=== PATIENT | female | born 1980 | race Hispanic/Latino ===

== ENCOUNTER 2018-09-16 19:50 | Emergency (ER) | payer OTHER ==
[~2018-09-16 19:50] MED LIST: ACET1TAB12 PO
[2018-09-16 20:28] LABS: BASOPHILS % (AUTO) 2.2 % (0.0-5.0); EOSINOPHILS % (AUTO) 1.9 % (0.0-8.0); HEMATOCRIT 41.2 % (36-48); LYMPHOCYTES % (AUTO) 31.4 % (21.0-51.0); MEAN CORPUSCULAR HEMOGLOBIN 28.1 pg (27.0-33.0); MEAN CORPUSCULAR HGB CONC 33.4 g/dL (32.0-36.0); MEAN CORPUSCULAR VOLUME 84.2 fL (79-99); MONOCYTES % (AUTO) 6.7 % (3.0-13.0); NEUTROPHILS % (AUTO) 57.8 % (40.0-77.0); PLATELET COUNT (AUTO) 299 K/uL (130-400); RED BLOOD CELL COUNT(AUTO) 4.89 MIL/uL (4.00-5.50); RED CELL DISTRIBUTION WIDTH 12.8 % (11.0-15.5); WHITE BLOOD COUNT (AUTO) 7.9 K/uL (4.8-10.8)
[2018-09-16 20:40] LABS: CREATININE 0.7 mg/dL (0.5-1.5)
[2018-09-16 20:45] LABS: ALBUMIN 3.2 g/dL (3.5-5.0); BILIRUBIN,TOTAL 0.4 mg/dL (0.2-1.0); TOTAL PROTEIN, SERUM 7.4 g/dL (6.0-8.3)
[2018-09-16 20:46] LABS: B-TYPE NATRIURETIC PEPTIDE 9 pg/mL (0-100)
[2018-09-16 21:03] LABS: APPEARANCE,URINE Clear (CLEAR); BILIRUBIN,URINE Negative (NEGATIVE); COLOR,URINE Yellow (YELLOW); GLUCOSE, URINE (UA) Negative (NEGATIVE); KETONES,URINE Negative (NEGATIVE); LEUKOCYTE ESTERASE ,URINE Negative (NEGATIVE); NITRATE,URINE Negative (NEGATIVE); OCCULT BLOOD,URINE Negative (NEGATIVE); PROTEIN,URINE Negative (NEGATIVE)
[2018-09-16 21:06] LABS: HCG,QUAL RESULT NEGATIVE (NEGATIVE)
== END 2018-09-16 22:27 | disposition home or self-care (01) ==
LOC: EDH 19:50
DX: R60.0 Localized edema (principal); R03.0 Elevated blood-pressure reading, without diagnosis of hypertension; Z88.1 Allergy status to other antibiotic agents; Z90.49 Acquired absence of other specified parts of digestive tract
CPT/HCPCS: 36415; 80053; 81003; 81025; 83880; 85025; 85378

== ENCOUNTER 2018-11-22 18:51 | Emergency (ER) | payer OTHER ==
[2018-11-22] MEDS ORDERED: ONDANSETRON ODT 4 MG TAB ONE (19:55)
[2018-11-22 20:04] LABS: BILIRUBIN,URINE Negative (NEGATIVE); COLOR,URINE Yellow (YELLOW); GLUCOSE, URINE (UA) Negative (NEGATIVE); KETONES,URINE Negative (NEGATIVE); LEUKOCYTE ESTERASE ,URINE Negative (NEGATIVE); NITRATE,URINE Negative (NEGATIVE); OCCULT BLOOD,URINE Negative (NEGATIVE); PROTEIN,URINE Negative (NEGATIVE); UROBILINOGEN,URINE 0.2 mg/dL (0.2-1.0)
[2018-11-22 20:07] LABS: APPEARANCE,URINE CLEAR (CLEAR); HCG,QUAL RESULT NEGATIVE (NEGATIVE)
[2018-11-22] MEDS ORDERED: KETOROLAC TROMETHAMINE 60 MG/2 ML VIAL ONE (20:56)
[2018-11-22] MEDS ORDERED: DEXAMETHASONE SOD PHOSPHATE 4 MG/ML 5ML VIAL ONE (20:56)
== END 2018-11-22 22:09 | disposition home or self-care (01) ==
LOC: EDH 18:51
DX: B34.9 Viral infection, unspecified (principal); Z90.49 Acquired absence of other specified parts of digestive tract; Z88.1 Allergy status to other antibiotic agents
CPT/HCPCS: 81003; 81025; 87804 ×2; 96372 ×2; 99283; J1100; J1885

== ENCOUNTER 2019-04-14 16:27 | Emergency (ER) | payer OTHER ==
[2019-04-14] MEDS ORDERED: ORPHENADRINE CITRATE 30 MG/ML ML ONE (17:16)
[2019-04-14] MEDS ORDERED: KETOROLAC TROMETHAMINE 60 MG/2 ML VIAL ONE (17:16)
== END 2019-04-14 18:22 | disposition home or self-care (01) ==
LOC: EDH 16:27
DX: M62.830 Muscle spasm of back (principal); Z88.1 Allergy status to other antibiotic agents
CPT/HCPCS: 81025; 96372 ×2; 99284; J1885; J2360

== ENCOUNTER 2019-12-01 02:32 | Emergency (ER) | payer BC ==
[2019-12-01] MEDS ORDERED: LIDOCAINE 5% TOPICAL PATCH TP ONE (04:49)
[2019-12-01] MEDS ORDERED: ORPHENADRINE CITRATE 30 MG/ML ML ONE (04:49)
[2019-12-01] MEDS ORDERED: KETOROLAC TROMETHAMINE 60 MG/2 ML VIAL ONE (04:49)
== END 2019-12-01 05:36 | disposition home or self-care (01) ==
LOC: EDH 02:32
DX: M54.2 Cervicalgia (principal); M54.6 Pain in thoracic spine; M62.838 Other muscle spasm; Z88.2 Allergy status to sulfonamides; Z90.49 Acquired absence of other specified parts of digestive tract
CPT/HCPCS: 96372 ×2; 99284; J1885; J2360

== ENCOUNTER → 2022-02-20 | Outpatient (CLI) | payer BC | END | disposition home or self-care (01) | LOC: RAH 08:09 | PROVIDERS: ATTEND Nurse Practitioner Family | DX: M47.812 Spondylosis without myelopathy or radiculopathy, cervical region (principal); M50.222 Other cervical disc displacement at C5-C6 level; M48.02 Spinal stenosis, cervical region; G43.709 Chronic migraine without aura, not intractable, without status migrainosus | CPT/HCPCS: 70551; 72141 ==